=== PATIENT | female | born 1990 | race Caucasian/White ===

== ENCOUNTER 2022-11-25 19:33 | Emergency (ER) | payer OTHER ==
[~2022-11-25] VITALS: Ht 167.6 cm; Wt 63.5 kg
[2022-11-25 19:45] VITALS: BP 122/92; PULSE 111; RESP 17; TEMP 98.2; O2SAT 98
--- NOTE | 2022-11-25 19:48 | NUR ---
to lobby a/w bed ambulatory
--- NOTE | 2022-11-25 19:52 | NUR ---
PT TAKEN TO ER CHAIR
--- NOTE | 2022-11-25 19:53 | NUR ---
Dr. Swenson examining patient.
--- NOTE | 2022-11-25 20:08 | NUR ---
PT TAKEN TO BED 10
[2022-11-25] MEDS ORDERED: LIDOCAINE 1% 500 MG/ 50 ML VIAL INJ ONE (20:15)
[2022-11-25] MEDS ORDERED: LIDOCAINE MPF 1% 0 ML ONE (20:17)
--- NOTE | 2022-11-25 20:32 | NUR ---
Dr. Swenson at bedside
[2022-11-25] MEDS ORDERED: VANCOMYCIN 1,000 MG in DEXTROSE 5% 250 ML IV ONE (20:40)
--- NOTE | 2022-11-25 20:41 | NUR ---
PT WOUND SITE DRESSED.
[2022-11-25] MEDS ORDERED: ceFAZolin 1,000 MG VIAL IM ONE (21:05)
[2022-11-25] MEDS ORDERED: LIDOCAINE MPF 1% 5 ML ONE (21:21)
[2022-11-25] MEDS ORDERED: WATER STERILE 10 ML MC ONE (21:28)
[2022-11-25] MEDS ORDERED: CEPH500C16 PO (21:40)
[2022-11-25] MEDS ORDERED: NAPR-54 PO (21:40)
[2022-11-25 21:46] VITALS: BP 122/92; PULSE 99; RESP 17; TEMP 98.2; O2SAT 98
--- NOTE | 2022-11-25 22:02 | NUR ---
Patient discharged with v/s stable. Written and verbal after care instructions given and explained. Patient alert, oriented and verbalized understanding of instructions. Ambulatory with steady gait. All questions addressed prior to discharge. ID band removed. Patient advised to follow up with PMD. Rx of cephalixin, naprosyn given. Patient educated on indication of medication including possible reaction and side effects. Opportunity to ask questions provided and answered.
== END 2022-11-25 22:02 | disposition home or self-care (01) ==
LOC: MED 19:33
DX: L02.413 Cutaneous abscess of right upper limb (principal); Z79.899 Other long term (current) drug therapy
CPT/HCPCS: 10060; 96372; 99284; J0690; J2001